=== PATIENT | female | born 1985 | race Caucasian/White ===

== ENCOUNTER 2018-06-20 18:55 | Emergency (ER) | payer SELFPAY ==
[~2018-06-20 18:55] MED LIST: ALBU8HFA IH
== END 2018-06-20 22:10 | disposition left against medical advice (07) ==
LOC: EMS 18:56
DX: J02.9 Acute pharyngitis, unspecified (principal); Z53.21 Procedure and treatment not carried out due to patient leaving prior to being seen by health care provider